=== PATIENT | male | born 1965 | race Caucasian/White ===

== ENCOUNTER 2017-02-07 13:46 | Emergency (ER) | payer OTHER ==
[~2017-02-07] VITALS: Ht 172.7 cm; Wt 91.4 kg
[~2017-02-07 13:46] MED LIST: BACLOFEN10 MG PO; BENTYL10 MG PO; CHOLESTYRAMINE P4 GM PO; CITALOPRAM HBR20 MG PO; DESYREL 150 MG150 MG PO; DIAZEPAM5 MG PO; FOLIC ACID1 MG PO; HYDROCODON-ACE1 EACH; HYDROXYZINE PAM50 MG PO; LEVOTHYROXINE175 MCG PO; LIBRIUM25 MG PO; LISINOPRIL10 MG PO; LORAZEPAM1 MG PO; METHADONE 22 MG/1 ML PO; METHADONE HCL40 MG PO; METHADOSE40 MG PO; METRONIDAZOLE500 MG PO; MOTRIN600 MG PO; MULTIVITAMIN1 EAC2 PO; NAPROSYN500 MG PO; NAPROXEN500 MG PO; NICOTINE PATCH1 EAC1 TD; PANTOPRAZOLE SO40 MG PO; PERCOCET 5/31 TABLET PO; PHENERGAN25 MG PR; PREDNISONE20 MG PO; PREDNISONE50 MG PO; PRILOSEC20 MG PO; PROMETHAZINE HC25 M1 PO; PROTONIX40 MG PO; REGLAN10 MG PO; THERAGRAN1 TABLET PO; THIAMINE HCL100 MG PO; Thiamine,Vitamin B1 PO; VICODIN 5-3001 EACH PO; VITAMIN B-1100 MG PO; ZANTAC300 MG PO; ZOFRAN4 MG PO; lisinopril
[2017-02-07 14:33] LABS: HEMATOCRIT 48.1 % (38.0-50.0); MCH 32.6 PG (29.0-34.0); MCHC 35.3 G/DL (30.0-36.0); MCV 92.1 FL (86-99); MEAN PLAT.VOLUME 8.7 uM^3 (9.0-12.4); PLATELET COUNT 447 K/uL (156-360); RBC DIS.WIDTH-CV 14.5 % (11.8-14.6); RBC DIS.WIDTH-SD 47.5 % (39-53); RED BLOOD COUNT 5.22 M/uL (4.00-5.50); WHITE BLOOD COUNT 12.2 K/uL (4.1-10.2)
[2017-02-07 14:42] LABS: CHLORIDE 107 mEq/L (99-109); POTASSIUM 3.8 mEq/L (3.7-5.4); SODIUM 139 mEq/L (136-147)
[2017-02-07 14:43] LABS: GLUCOSE 112 mg/dL (70-99)
[2017-02-07 14:45] LABS: ANION GAP 9 MEQ/L (2-14)
[2017-02-07 14:47] LABS: GFR ESTIMATE (CALCULATED) > 59 mL/min/
[2017-02-07 14:48] LABS: UREA NITROGEN (BUN) 9 mg/dL (9-23)
[2017-02-07 14:53] LABS: TROP-I INTERPRETATION NEGATIVE; TROPONIN-I < 0.01 ng/mL (0.0-0.30)
[2017-02-07 15:13] LABS: D-DIMER ELISA 0.46 mg/L FEU (< 0.57)
[2017-02-07] MEDS ORDERED: ULTRAM50 MG PO (15:59)
[2017-02-07] MEDS ORDERED: MOTRIN600 MG PO (15:59)
[2017-02-07 16:07] VITALS: BP 135/95
== END 2017-02-07 16:21 | disposition home or self-care (01) ==
LOC: EME 13:46
DX: R07.89 Other chest pain (principal); I10 Essential (primary) hypertension; Z85.850 Personal history of malignant neoplasm of thyroid; F17.200 Nicotine dependence, unspecified, uncomplicated
CPT/HCPCS: 71020; 80048; 84484; 85027; 85379; 93005; 99281; 99285; J1885; J2270; J2405

== ENCOUNTER 2017-03-21 19:28 | Emergency (ER) | payer OTHER ==
[~2017-03-21] VITALS: Ht 172.7 cm; Wt 92.3 kg
[~2017-03-21 19:28] MED LIST changes: +ULTRAM50 MG PO
[2017-03-21 20:00] VITALS: BP 117/93
== END 2017-03-21 20:24 ==
LOC: EME 19:28
DX: F10.129 Alcohol abuse with intoxication, unspecified (principal); F17.200 Nicotine dependence, unspecified, uncomplicated
CPT/HCPCS: 99281; 99282

== ENCOUNTER 2017-09-28 07:19 | Inpatient (IN) | payer OTHER ==
[~2017-09-28] VITALS: Ht 172.7 cm; Wt 98.5 kg
[2017-09-28 08:15] LABS: MCH 35.9 PG (29.0-34.0); MCHC 36.6 G/DL (30.0-36.0); MCV 98.2 FL (86-99); MEAN PLAT.VOLUME 9.1 uM^3 (9.0-12.4); PLATELET COUNT 284 K/uL (156-360); RBC DIS.WIDTH-CV 12.9 % (11.8-14.6); RBC DIS.WIDTH-SD 46.8 % (39-53); RED BLOOD COUNT 4.48 M/uL (4.00-5.50); WHITE BLOOD COUNT 11.8 K/uL (4.1-10.2)
[2017-09-28 08:31] LABS: ADD MIUA? YES; BILIRUBIN SMALL; BLOOD SMALL; COLOR AMBER ((YELLOW)); GLUCOSE (STRIP) NEGATIVE; KETONES 5; LEUKOCYTES NEGATIVE; NITRITE NEGATIVE; PROTEIN (STRIP) >=500; SPECIFIC GRAVITY 1.028 (1.000-1.030)
[2017-09-28 08:37] LABS: BACTERIA RARE /HPF; EPITHELIAL CELLS RARE /HPF; HYALINE CASTS 0-5 /LPF; MUCUS 4+ /LPF; WHITE BLOOD CELLS 0-5 /HPF (0-5)
[2017-09-28 08:56] LABS: ALKALINE PHOSPHATASE 92 IU/L (3-129); ANION GAP 10 MEQ/L (2-14); CHLORIDE 98 MEQ/L (99-109); GFR ESTIMATE (CALCULATED) > 59 mL/min/; GLUCOSE 153 mg/dL (70-99); LIPASE 221 U/L (1.0-51.0); POTASSIUM 3.3 MEQ/L (3.7-5.4); SAMPLE HEMOLYSIS CHECK 0; SAMPLE ICTERIC CHECK 0; SAMPLE LIPEMIA CHECK 0; SODIUM 136 MEQ/L (136-147); TOTAL BILIRUBIN 1.3 MG/DL (0.0-1.0); UREA NITROGEN (BUN) 8 mg/dL (9-23)
[2017-09-28] MEDS ORDERED: SYNTHROID175 MCG PO (10:42)
[2017-09-28] MEDS ORDERED: ZESTRIL10 MG PO (10:44)
[2017-09-28 12:16] LABS: SERUM ETHYL ALCOHOL < 10 mg/dL
[2017-09-28 12:30] VITALS: BP 170/96
[2017-09-28 14:07] LABS: AMPHETAMINES QUANT VALUE 0 NG/ML; BARBITUATES QUANT VALUE 0 NG/ML; BENZODIAZEPINES QUANT VALUE 0 NG/ML; BENZODIAZEPINES, URINE SCREEN Negative (200 ng/mL); MARIJUANA QUANT VALUE 0 NG/ML; PHENCYCLIDINE QUANT VALUE 0 NG/ML
[2017-09-28 23:36] VITALS: BP 137/99
[2017-09-29 06:48] LABS: HEMATOCRIT 43.8 % (38.0-50.0); MCH 35.4 PG (29.0-34.0); MCHC 34.5 G/DL (30.0-36.0); MEAN PLAT.VOLUME 9.5 uM^3 (9.0-12.4); PLATELET COUNT 266 K/uL (156-360); RBC DIS.WIDTH-CV 13.2 % (11.8-14.6); RBC DIS.WIDTH-SD 50.2 % (39-53); RED BLOOD COUNT 4.27 M/uL (4.00-5.50)
[2017-09-29 07:05] LABS: ALKALINE PHOSPHATASE 88 IU/L (3-129); ANION GAP 9 MEQ/L (2-14); CHLORIDE 100 MEQ/L (99-109); GFR ESTIMATE (CALCULATED) > 59 mL/min/; LIPASE 102 U/L (1.0-51.0); POTASSIUM 3.9 MEQ/L (3.7-5.4); SAMPLE HEMOLYSIS CHECK 0; SAMPLE ICTERIC CHECK 0; SAMPLE LIPEMIA CHECK 0; SODIUM 139 MEQ/L (136-147); TOTAL BILIRUBIN 1.4 MG/DL (0.0-1.0); UREA NITROGEN (BUN) 7 mg/dL (9-23)
[2017-09-29 07:06] LABS: GLUCOSE 100 mg/dL (70-99)
[2017-09-29 07:22] LABS: MCV 102.6 FL (86-99)
[2017-09-29 07:54] VITALS: BP 130/87
[2017-09-29 11:08] LABS: HBSG INDEX 0.13; HPCA INDEX 0.19
[2017-09-29 11:09] LABS: ANTI-HEPATITIS A VIRUS (IGM) Nonreactive; HAV INDEX 0.14
[2017-09-29 11:10] LABS: ANTI-HEPATITIS B CORE (IGM) Nonreactive; HBC IgM INDEX 0.08
[2017-09-29 11:24] LABS: MAGNESIUM 1.8 mg/dl (1.3-2.7)
[2017-09-30] VITALS: BP 106/62
[2017-09-30 06:27] LABS: BASOPHIL COUNT 0.1 K/uL (0-0.1); EOSINOPHIL COUNT 0.2 K/uL (0-0.3); HEMATOCRIT 41.5 % (38.0-50.0); IMMATURE GRANULOCYTE (%) 0.8 % (0.0-0.7); IMMATURE GRANULOCYTE COUNT 0.1 K/uL; INSTRUMENT ABS NEUTROPHIL CT 6.7 K/uL; LYMPHOCYTE COUNT 1.7 K/uL (1.0-2.8); MCH 34.5 PG (29.0-34.0); MCHC 33.5 G/DL (30.0-36.0); MEAN PLAT.VOLUME 9.4 uM^3 (9.0-12.4); MONOCYTE (%) 9.2 % (3-12); MONOCYTE COUNT 0.9 K/uL (0-0.8); NEUTROPHIL (%) 69.5 % (45-76); NEUTROPHIL COUNT 6.7 K/uL (1.8-6.4); PLATELET COUNT 220 K/uL (156-360); RBC DIS.WIDTH-SD 49.9 % (39-53); RED BLOOD COUNT 4.03 M/uL (4.00-5.50); WHITE BLOOD COUNT 9.7 K/uL (4.1-10.2)
[2017-09-30 07:12] LABS: ALKALINE PHOSPHATASE 84 IU/L (3-129); ANION GAP 9 MEQ/L (2-14); CHLORIDE 102 MEQ/L (99-109); GFR ESTIMATE (CALCULATED) > 59 mL/min/; GLUCOSE 111 mg/dL (70-99); POTASSIUM 3.9 MEQ/L (3.7-5.4); SAMPLE HEMOLYSIS CHECK 0; SAMPLE ICTERIC CHECK 0; SAMPLE LIPEMIA CHECK 0; SODIUM 136 MEQ/L (136-147); TOTAL BILIRUBIN 1.3 MG/DL (0.0-1.0); UREA NITROGEN (BUN) 7 mg/dL (9-23)
[2017-09-30 07:42] VITALS: BP 110/74
[2017-09-30 11:06] LABS: LIPASE 62 U/L (1.0-51.0)
[2017-10-01] VITALS: BP 125/85
[2017-10-01 07:00] LABS: BASOPHIL COUNT 0.1 K/uL (0-0.1); EOSINOPHIL (%) 1.8 % (0-5); EOSINOPHIL COUNT 0.2 K/uL (0-0.3); IMMATURE GRANULOCYTE (%) 0.8 % (0.0-0.7); IMMATURE GRANULOCYTE COUNT 0.1 K/uL; LYMPHOCYTE COUNT 1.7 K/uL (1.0-2.8); MCV 102.9 FL (86-99); MEAN PLAT.VOLUME 9.6 uM^3 (9.0-12.4); MONOCYTE (%) 11.4 % (3-12); NEUTROPHIL (%) 66.4 % (45-76); PLATELET COUNT 248 K/uL (156-360); RBC DIS.WIDTH-CV 13.1 % (11.8-14.6); RBC DIS.WIDTH-SD 50.2 % (39-53); RED BLOOD COUNT 4.08 M/uL (4.00-5.50); WHITE BLOOD COUNT 9.1 K/uL (4.1-10.2)
[2017-10-01 07:26] VITALS: BP 154/99
[2017-10-01 07:28] LABS: ALKALINE PHOSPHATASE 89 IU/L (3-129); ANION GAP 7 MEQ/L (2-14); CHLORIDE 105 MEQ/L (99-109); GFR ESTIMATE (CALCULATED) > 59 mL/min/; GLUCOSE 130 mg/dL (70-99); POTASSIUM 4.2 MEQ/L (3.7-5.4); SAMPLE HEMOLYSIS CHECK 0; SAMPLE ICTERIC CHECK 0; SAMPLE LIPEMIA CHECK 0; SODIUM 140 MEQ/L (136-147); UREA NITROGEN (BUN) 5 mg/dL (9-23)
[2017-10-01 09:26] LABS: IMM.RETIC FRACTION 16.6 % (3-19); RETICULOCYTE COUNT 3.3 % (0.5-1.8)
[2017-10-01 10:00] LABS: FERRITIN 342 NG/ML (22-322); IRON 63 MCG/DL (35-150)
[2017-10-01 16:11] VITALS: BP 133/81
[2017-10-02 06:40] LABS: BASOPHIL COUNT 0.1 K/uL (0-0.1); EOSINOPHIL (%) 1.7 % (0-5); EOSINOPHIL COUNT 0.1 K/uL (0-0.3); HEMATOCRIT 42.3 % (38.0-50.0); IMMATURE GRANULOCYTE (%) 0.7 % (0.0-0.7); IMMATURE GRANULOCYTE COUNT 0.1 K/uL; INSTRUMENT ABS NEUTROPHIL CT 5.3 K/uL; LYMPHOCYTE COUNT 1.9 K/uL (1.0-2.8); MCH 34.7 PG (29.0-34.0); MCHC 33.6 G/DL (30.0-36.0); MCV 103.4 FL (86-99); MEAN PLAT.VOLUME 9.3 uM^3 (9.0-12.4); MONOCYTE (%) 10.4 % (3-12); MONOCYTE COUNT 0.9 K/uL (0-0.8); NEUTROPHIL (%) 63.7 % (45-76); NEUTROPHIL COUNT 5.3 K/uL (1.8-6.4); PLATELET COUNT 281 K/uL (156-360); RBC DIS.WIDTH-CV 13.2 % (11.8-14.6); RED BLOOD COUNT 4.09 M/uL (4.00-5.50); WHITE BLOOD COUNT 8.3 K/uL (4.1-10.2)
[2017-10-02 06:58] LABS: ALKALINE PHOSPHATASE 83 IU/L (3-129); ANION GAP 6 MEQ/L (2-14); CHLORIDE 107 MEQ/L (99-109); GFR ESTIMATE (CALCULATED) > 59 mL/min/; GLUCOSE 127 mg/dL (70-99); SAMPLE HEMOLYSIS CHECK 0; SAMPLE ICTERIC CHECK 0; SAMPLE LIPEMIA CHECK 0; SODIUM 141 MEQ/L (136-147); UREA NITROGEN (BUN) 5 mg/dL (9-23)
[2017-10-02 06:59] LABS: TOTAL BILIRUBIN 0.7 MG/DL (0.0-1.0)
[2017-10-02 07:52] VITALS: BP 162/102
[2017-10-02 08:00] VITALS: BP 162/102
[2017-10-02] MEDS ORDERED: Thiamine,Vitamin B1 PO (10:43)
[2017-10-02] MEDS ORDERED: SYMBICORT60 INHALA1 IH (10:43)
[2017-10-02] MEDS ORDERED: FOLIC ACID1 MG PO (10:43)
[2017-10-02] MEDS ORDERED: TAMSULOSIN HCL0.4 MG PO (10:43)
[2017-10-02] MEDS ORDERED: VENTOLIN HFA18 GM IH (10:43)
== END 2017-10-02 13:26 | disposition home or self-care (01) | DRG 438 ==
LOC: EME 07:19 → EDOF 11:02 → 5SOUTH 11:02 → ENRESERV 11:03 → 5SOUTH 12:18 → ENPENDDIS 10-02 → 5SOUTH 10-02 13:26
PROVIDERS: Hospitalist; Nurse Practitioner Adult Health; Physician Assistant
DX: K85.20 Alcohol induced acute pancreatitis without necrosis or infection (principal); K22.6 Gastro-esophageal laceration-hemorrhage syndrome; F33.9 Major depressive disorder, recurrent, unspecified; F10.10 Alcohol abuse, uncomplicated; K76.0 Fatty (change of) liver, not elsewhere classified; R16.0 Hepatomegaly, not elsewhere classified; I10 Essential (primary) hypertension; E87.6 Hypokalemia; E89.0 Postprocedural hypothyroidism; F17.210 Nicotine dependence, cigarettes, uncomplicated; Z91.14 Patient's other noncompliance with medication regimen; K21.9 Gastro-esophageal reflux disease without esophagitis; K59.00 Constipation, unspecified; R32 Unspecified urinary incontinence; G89.29 Other chronic pain; M54.9 Dorsalgia, unspecified; K52.89 Other specified noninfective gastroenteritis and colitis; E66.9 Obesity, unspecified; Y90.0 Blood alcohol level of less than 20 mg/100 ml; Z85.850 Personal history of malignant neoplasm of thyroid; Z91.19 Patient's noncompliance with other medical treatment and regimen; Z68.33 Body mass index [BMI] 33.0-33.9, adult; Z82.49 Family history of ischemic heart disease and other diseases of the circulatory system
CPT/HCPCS: 71020; 74177; 76705; 80053; 80306 90; 81003; 82607; 82728; 82746; 83540; 83690; 83735; 84466; 85025; 85027; 85045; 86705; 86709; 86803; 87340; 90686; 94640; 94640 76; 99202; 99281; 99285; C9113; G0480; J1650; J2060; J2270; J2405; J3411; J3480; J7040; J7120

== ENCOUNTER 2017-10-24 08:30 | Emergency (ER) | payer OTHER ==
[~2017-10-24] VITALS: Ht 172.7 cm; Wt 102.0 kg
[~2017-10-24 08:30] MED LIST changes: +SYMBICORT60 INHALA1 IH; +SYNTHROID175 MCG PO; +TAMSULOSIN HCL0.4 MG PO; +VENTOLIN HFA18 GM IH; +ZESTRIL10 MG PO
[2017-10-24 10:00] VITALS: BP 153/111
[2017-10-24 10:32] LABS: BASOPHIL (%) 0.8 % (0-1); BASOPHIL COUNT 0.1 K/uL (0-0.1); EOSINOPHIL (%) 1.7 % (0-5); EOSINOPHIL COUNT 0.1 K/uL (0-0.3); HEMATOCRIT 45.5 % (38.0-50.0); HEMOGLOBIN 16.1 G/DL (12.5-16.6); IMMATURE GRANULOCYTE (%) 0.5 % (0.0-0.7); LYMPHOCYTE (%) 24.6 % (15-42); LYMPHOCYTE COUNT 1.9 K/uL (1.0-2.8); MCHC 35.4 G/DL (30.0-36.0); MCV 98.9 FL (86-99); MONOCYTE (%) 10.7 % (3-12); MONOCYTE COUNT 0.8 K/uL (0-0.8); NEUTROPHIL (%) 61.7 % (45-76); NEUTROPHIL COUNT 4.8 K/uL (1.8-6.4); PLATELET COUNT 305 K/uL (156-360); RBC DIS.WIDTH-CV 12.9 % (11.8-14.6); RBC DIS.WIDTH-SD 46.8 % (39-53); WHITE BLOOD COUNT 7.7 K/uL (4.1-10.2)
[2017-10-24 10:41] LABS: ALBUMIN 3.7 g/dL (3.2-4.8); CHLORIDE 108 mEq/L (99-109); POTASSIUM 3.8 mEq/L (3.7-5.4); SODIUM 141 mEq/L (136-147)
[2017-10-24 10:44] LABS: GLUCOSE 120 mg/dL (70-99); TOTAL PROTEIN 7.2 g/dL (6.4-8.3)
[2017-10-24 10:46] LABS: TOTAL BILIRUBIN 0.5 mg/dL (0.0-1.0)
[2017-10-24 10:47] LABS: ALKALINE PHOSPHATASE 83 IU/L (3-129); CREATININE 0.8 mg/dL (0.6-1.3); GFR ESTIMATE (CALCULATED) > 59 mL/min/ (58.99-99999)
[2017-10-24 10:48] LABS: UREA NITROGEN (BUN) 9 mg/dL (9-23)
[2017-10-24 10:49] LABS: AST (GOT) 175 IU/L (2-34)
[2017-10-24 10:50] LABS: ALT (GPT) 122 IU/L (3-49)
[2017-10-24 12:01] LABS: LIPASE 39 U/L (1.0-51.0)
[2017-10-24] MEDS ORDERED: ZOFRAN ODT4 MG PO (13:24)
[2017-10-24] MEDS ORDERED: PEPCID40 MG PO (13:24)
== END 2017-10-24 13:07 | disposition left against medical advice (07) ==
LOC: EME 08:30
PROVIDERS: Physician Assistant
DX: R11.2 Nausea with vomiting, unspecified (principal); K92.2 Gastrointestinal hemorrhage, unspecified; F10.10 Alcohol abuse, uncomplicated; I10 Essential (primary) hypertension; F41.9 Anxiety disorder, unspecified; Z85.850 Personal history of malignant neoplasm of thyroid; F17.200 Nicotine dependence, unspecified, uncomplicated
CPT/HCPCS: 80053; 81003; 83690; 83735; 85025; 99281; 99285; J7120